=== PATIENT | female | born 1950 | race Caucasian/White ===

== ENCOUNTER 2017-11-23 17:46 | Inpatient (IN) | payer OTHER ==
[~2017-11-23] VITALS: Ht 175.3 cm; Wt 81.6 kg
--- NOTE | ~2017-11-23 | D ---
[facility] [place] [address] DISCHARGE SUMMARY Name: EDWIN ELIZABETH Room #: 214-P [facility] IN M.R.#: [id number] Admission: 11/23/17 Attend Phys: Panfilo Reyes MD Discharge: 11/25/17 Date of : 46 Report #: [id number] THIS REPORT FOR: //name// CC: Panfilo Reyes FINAL DIAGNOSES: 1. Paroxysmal atrial fibrillation. 2. Chest pain. HOSPITAL COURSE: The patient was admitted with a day-long history of chest pain, although cardiac enzymes and EKG were unremarkable. Dr. Canseco saw her in consultation and was preparing a stress test; however, during that she developed rapid atrial fibrillation. This converted with oral medication. She was watched on telemetry overnight with Tambocor, metoprolol and Pradaxa in place. Echocardiogram was unremarkable. The plan was rhythm control with current medications and oral anticoagulation with outpatient stress test. PHYSICAL EXAMINATION: GENERAL: On the day of discharge, she was awake and alert, in no distress, with no further chest pain or shortness of breath. VITAL SIGNS: Temperature 37.2, pulse 72, respirations , blood pressure 122/75. LUNGS: Clear. HEART: Regular. ABDOMEN: Soft, normoactive bowel sounds. EXTREMITIES: No edema. DISPOSITION: She will be discharged to home with diet and activity as tolerated. Follow with Dr. Canseco in 2 weeks for stress test. Follow up with me in 6 weeks. DISCHARGE MEDICATIONS: She will have Toprol-XL 25 mg, Tambocor 100 mg b.i.d., Pradaxa 150 mg b.i.d. <ELECTRONICALLY SIGNED> By: Panfilo Reyes MD 11/25/17 1629 1122 1217 Panfilo Reyes MD /nt
--- NOTE | ~2017-11-23 | H ---
[facility] [place] [address] HISTORY AND PHYSICAL Name: EDWIN ELIZABETH Room #: 214-P ADM IN M.R.#: [id number] Admission: 11/23/17 Attend Phys: Panfilo Reyes MD Discharge: Date of : 46 Report #: [id number] THIS REPORT FOR: //name// CC: Panfilo Reyes CHIEF COMPLAINT: Chest pain. HISTORY OF PRESENT ILLNESS: The patient is a 67-year-old female who came to the Emergency Room after one day history of chest pain. She woke yesterday morning about 6 a.m. with what she describes as a "heavy chest pain in the substernal region." She had no radiation of symptoms to her neck or arms. She denied any diaphoresis, nausea, vomiting or shortness of breath. She said the pain awoke her from sleep and the pain continued pretty much all day unabated. She did not seem to think that any rest or activity exacerbated or helped the pain. She did not really try any medicine for it, but said it was a consistent pain throughout the day. She denied any fever, chills or GI symptoms. She has been pain free overnight and pain free so far this morning. She describes having a "stress test" she said years ago and says she remembers it being negative, but cannot remember any other details. PAST MEDICAL HISTORY: She has had a vertigo bout in June of this year. No history of hypertension, heart disease, diabetes. PAST SURGICAL HISTORY: None. FAMILY HISTORY: Noncontributory. SOCIAL HISTORY: A 93-mbma-enbt smoking. No chronic alcohol use. ALLERGIES: None. MEDICATIONS: None. REVIEW OF SYSTEMS: Denies headache, shortness of breath, abdominal pain, nausea, vomiting, diarrhea, constipation, dysuria, syncope. OBJECTIVE: VITAL SIGNS: Temperature 37.2, pulse , respirations 16, blood pressure 110/64, O2 sat there was one recorded 89%, but all the others have been recorded 93% to 99% on room air. GENERAL: She is awake and alert, in no distress. LUNGS: Clear with no wheezing. HEART: Regular, without murmur. ABDOMEN: Soft, normoactive bowel sounds. EXTREMITIES: No edema. NEUROLOGIC: Intact. [address] [address] HISTORY AND PHYSICAL Name: EDWIN ELIZABETH Room #: 214-[facility] IN .R.#: [id number] Admission: 11/23/17 Attend Phys: Panfilo Reyes MD Discharge: Date of : 46 Report #: [id number] Serial troponin levels are negative. ASSESSMENT: Chest pain. PLAN: Consider stress testing given her age and smoking as risk factor. <ELECTRONICALLY SIGNED> By: Panfilo Reyes MD 11/25/17 1052 1104 1119 Panfilo Reyes MD /nt
--- NOTE | ~2017-11-23 | EKG ---
[place] [address] [facility] [place] [address] ELECTROCARDIOGRAM REPORT Name: EDWIN ELIZABETH Room #: 214-P ADM IN M.R.#: [id number] Admission: 11/23/17 Attend Phys: Panfilo Reyes MD Discharge: Date of : 46 Report #: [id number] THIS REPORT FOR: //name// [facility] ED Test Date: 2017-11-23 Test Time: 17:51:36 Pat Name: EDWIN ELIZABETH Department: Room: Gender: F [employer] Chemist: ROHINI : 1950 Requested By: Cody Duke Order Number: [id number] MD: Ethan Alegria Measurements Intervals [place] Rate: 89 P: 70 VA: 143 QRS: 36 QRSD: 85 T: 69 QT: 341 QTc: 415 Interpretive Statements Sinus rhythm No significant abnormality No previous ECG available for comparison Electronically Signed On 11-24-2017 8:11:00 CDT by Ethan Alegria [email or web address] <ELECTRONICALLY SIGNED> By: Ethan Alegria MD, [facility] 11/24/17 0811 1751 1751 Ethan Alegria MD, FACC /EPI
[2017-11-23 17:46] VITALS: BP 145/68
[2017-11-23 18:35] LABS: ABSOLUTE NEUTROPHILS 4.7 thou/uL (1.4-8.2); BASOPHILS 0.5 % (0.0-2.0); EOSINOPHILS 2.5 % (0.0-3.0); HEMATOCRIT 44.8 % (37.0-47.0); HEMOGLOBIN 15.4 gm/dL (12.0-15.0); LYMPHOCYTES 17.2 % (24.0-44.0); MCH 32.1 pg (26.0-34.0); MCHC 34.4 g/dL (28.0-37.0); MCV 93.4 fL (80.0-100.0); MONOCYTES 10.6 % (1.0-8.0); PLATELET COUNT 112 thou/uL (150-400); POLYS 69.2 % (36.0-66.0); RDW 15.1 % (10.5-14.5); WBC 6.7 thou/uL (4.0-11.0)
[2017-11-23 18:44] LABS: ANION GAP 8 mmol/L (7-16); BUN 11 mg/dL (7-18); CALCIUM 9.1 mg/dL (8.5-10.1); CHLORIDE 105 mmol/L (98-107); CO2 27 mmol/L (21-32); CREATININE 0.9 mg/dL (0.6-1.0); GLUCOSE 118 mg/dL (74-106); POTASSIUM 4.1 mmol/L (3.5-5.1); SODIUM 140 mmol/L (136-145)
[2017-11-23 18:53] LABS: TROPONIN-I <0.06 ng/mL (<0.06)
[2017-11-23 20:34] VITALS: BP 140/83
[2017-11-23 21:22] VITALS: BP 142/78
[2017-11-23 21:39] VITALS: BP 142/75
[2017-11-23] MEDS ORDERED: CALCIUM 600 +1 EACH PO (21:42)
[2017-11-24 00:05] VITALS: BP 115/72
[2017-11-24 04:37] VITALS: BP 103/54
[2017-11-24 07:57] VITALS: BP 110/64
[2017-11-24 11:52] VITALS: BP 126/73
[2017-11-24 15:57] VITALS: BP 100/72
[2017-11-24 20:45] VITALS: BP 102/80
[2017-11-25 04:38] VITALS: BP 108/53
[2017-11-25 08:33] VITALS: BP 122/75
[2017-11-25] MEDS ORDERED: PRADAXA150 MG PO (11:15)
[2017-11-25] MEDS ORDERED: TAMBOCOR 100 M100 M1 PO (11:15)
[2017-11-25] MEDS ORDERED: METOPROLOL SUCC25 M1 PO (11:16)
[2017-11-25 12:25] VITALS: BP 122/75
[2017-11-25 13:19] VITALS: BP 122/75
== END 2017-11-25 13:28 | disposition home or self-care (01) | DRG 310 ==
LOC: ER 17:46 → EROBS 20:17 → 2N 20:17 → ENTRNSPT 11-25 13:06 → EDTRNSPTSTS 11-25 13:12 → 2N 11-25 13:28
PROVIDERS: Emergency Medicine
DX: I48.0 Paroxysmal atrial fibrillation (principal); I10 Essential (primary) hypertension; E11.9 Type 2 diabetes mellitus without complications; E78.5 Hyperlipidemia, unspecified; F17.200 Nicotine dependence, unspecified, uncomplicated; Z90.710 Acquired absence of both cervix and uterus; Z71.6 Tobacco abuse counseling
CPT/HCPCS: 10081

== ENCOUNTER → 2017-12-07 | Outpatient (CLI) | payer OTHER ==
[~2017-12-07] MED LIST: CALCIUM 600 +1 EACH PO; METOPROLOL SUCC25 M1 PO; PRADAXA150 MG PO; TAMBOCOR 100 M100 M1 PO
== END ==
LOC: NUC 11:13
DX: R07.9 Chest pain, unspecified (principal); I48.91 Unspecified atrial fibrillation; Z87.891 Personal history of nicotine dependence

== ENCOUNTER → 2019-06-21 | Outpatient (CLI) | payer OTHER | LOC: SJCVCIMAG 10:41 | DX: I48.0 Paroxysmal atrial fibrillation (principal); R00.2 Palpitations; Z72.0 Tobacco use ==

== ENCOUNTER → 2020-01-17 | Outpatient (CLI) | payer OTHER | LOC: SJCVC 16:56 | PROVIDERS: ATTEND Internal Medicine Cardiovascular Disease | DX: I48.0 Paroxysmal atrial fibrillation (principal); Z79.899 Other long term (current) drug therapy; Z72.0 Tobacco use; R94.31 Abnormal electrocardiogram [ECG] [EKG] ==

== ENCOUNTER → 2021-01-15 | Outpatient (CLI) | payer OTHER | LOC: SJCVC 15:38 | PROVIDERS: ATTEND Internal Medicine Cardiovascular Disease | DX: R94.31 Abnormal electrocardiogram [ECG] [EKG] (principal); I48.0 Paroxysmal atrial fibrillation; F17.200 Nicotine dependence, unspecified, uncomplicated ==